=== PATIENT | male | born 1990 | race Caucasian/White ===

== ENCOUNTER 2020-08-01 00:02 | Emergency (ER) | payer OTHER ==
[2020-08-01] MEDS ORDERED: NORCO 5-325 TA1 EACH PO (02:28)
[2020-08-01] MEDS ORDERED: VIBRAMYCIN100 MG PO (02:28)
== END 2020-08-01 03:04 | disposition home or self-care (01) ==
LOC: FER 00:02
DX: L02.414 Cutaneous abscess of left upper limb (principal); L03.114 Cellulitis of left upper limb; Z23 Encounter for immunization
CPT/HCPCS: 90471; 90715